=== PATIENT | female | born 1985 | race Caucasian/White ===

== ENCOUNTER 2023-02-09 19:38 | Emergency (ER) | payer BC, SELFPAY ==
[2023-02-09 20:00] VITALS: BP 112/64; PULSE 90; RESP 16; TEMP 36.6; O2SAT 100
[2023-02-09 20:03] VITALS: BP 112/64; PULSE 90; RESP 16; TEMP 36.6; O2SAT 100
--- NOTE | 2023-02-09 20:20 | ED.URI ---
HPI - URI/Sore Throat General Chief Complaint: Upper Respiratory Infection Stated Complaint: congestion, cough, sinus drainage Time Seen by Provider: 02/09/23 20:20 Source: patient, RN notes reviewed and old records reviewed Mode of arrival: ambulatory Limitations: no limitations History of Present Illness HPI Narrative: 37 year old female who presents to [facility] with complaints of cough with sinus congestion and pressure for the past 5-6 days with no improvement with use of OTC medications. Patient reports that she has tried Delsym cough syrup, Claritin, Mucinex, and Zicam nasal spray with no improvement. Patient reports that she has not experienced any shortness of breath or any known fevers, or chills. Patent has been COVID vaccinated and has had flu shot. MD elicited complaint: cough, rhinorrhea, nasal congestion and sinus pain Onset (ago): day(s) (6) Pain scale (0-10): 7 Able to tolerate fluids by mouth: Yes Treatments prior to arrival: other (Claritin,Mucinex,Delsym, Zicam nasal spray) Related Data Home Medications Medication Instructions Recorded Confirmed cholecalciferol (vitamin D3) 25 25 mcg PO DAILY 02/09/23 02/09/23 mcg (1,000 unit) capsule (Vitamin D3) ferrous sulfate 324 mg (65 mg mg PO 02/09/23 iron) tablet,delayed release multivitamin 1 tablet PO DAILY 02/09/23 02/09/23 Allergies Allergy/AdvReac Type Severity Reaction Status Date / Time Penicillins Allergy Mild Hives Verified 02/09/23 19:58 amoxicillin Allergy Unknown Hives Verified 02/09/23 19:58 ciprofloxacin Allergy Unknown Hives Verified 02/09/23 19:58 CIPROFLOXACIN HCL Allergy Mild Hives Uncoded 02/09/23 19:58 Review of Systems Review of Systems: CONSTITUTIONAL:Reports malaise, no chills, sweats, or fever. EYES: Denies visual changes, redness, or discharge. ENT: Reports rhinorrhea, congestion, sinus pain, no otalgia no sore throat. CARDIOVASCULAR: Denies chest pain, palpitations, or edema. RESPIRATORY: Reports cough.? Denies dyspnea. GASTROINTESTINAL: Denies abdominal pain, nausea, vomiting, diarrhea SKIN: Denies rash or itching. MUSCULOSKELETAL: Denies myalgia. NEUROLOGIC: Denies headache. All systems reviewed & are unremarkable except as noted in HPI and below PMFSH Past Medical History Medical History (Updated 02/10/23 @ 08:21 by Jeanine Pearce NP) Endometriosis Kidney stones Surgical History Surgical History (Updated 02/10/23 @ 08:21 by Jeanine Pearce NP) History of hysterectomy History of tonsillectomy Previous section Family History Family History (Updated 07/03/14 @ 07:13 by DOCTOR UNKNOWN) Father Hypertension Grandparent Cerebrovascular accident Family history of coronary artery disease Mother Family history of thyroid disease Sibling Family history of thyroid disease Social History Social History (Updated 02/10/23 @ 08:22 by Jeanine Pearce NP) Smoking status: Never smoker Alcohol intake: current Alcohol use details: social Substance use type: does not use Living arrangements: with family Gender identity (if verbalized by the patient): Female Comments At time of signature, agree with nursing past medical, surgical, social and family history. There is no relevant family history pertinent to the presenting complaint Exam Narrative: GENERAL: Well-appearing, well-nourished, and in no acute distress. HEAD: Normocephalic EYES: PERRLA, conjunctivae clear ENT: Nares clear, turbinates edematous and erythematous, clear discharge. Mucous membranes moist. TM pearly pedro with dull light reflex bilaterally; no tragal tenderness. Oropharynx erythematous without lesions. Tonsils notpresent and throat without exudate, no drooling, no hoarseness, no trismus, uvula midline.post nasal drainage noted. NECK: Supple. No lymphadenopathy CHEST: Clear to auscultation, breath sounds equal. No wheezing, rhonchi, rales, or stridor. No respiratory distress, speaks
== END 2023-02-09 20:42 | disposition home or self-care (01) ==
PROVIDERS: Emergency Provider Registered Nurse; PCP Nurse Practitioner Family
DX: J06.9 Acute upper respiratory infection, unspecified (principal); R05.9 Cough, unspecified; N80.9 Endometriosis, unspecified
CPT/HCPCS: 99213; G0463

== ENCOUNTER 2024-03-20 09:51 | Emergency (ER) | payer BC, SELFPAY ==
[2024-03-20 09:58] VITALS: BP 104/68; PULSE 64; RESP 16; TEMP 36.6; O2SAT 100
--- NOTE | 2024-03-20 10:08 | ED.SKABFB ---
HPI - Skin/Abscess/Foreign Bdy General Chief complaint: Skin/Abscess/Foreign Body Stated complaint: LUMP ON LOWER BACK Time Seen by Provider: 03/20/24 10:08 Source: patient Mode of arrival: ambulatory Limitations: no limitations History of Present Illness HPI narrative: 39 yo F presents with lump to R buttock for 8 days. States that she first noticed lump after her daughter came up behind her and pushed on her butt. Pt states area was tender. Now notices a deep aching to area of lump. No redness/swelling/warmth or drainge. Called her PCP and was not able to get appt til end of April. All systems reviewed and negative except as noted above. Related Data Home Medications Medication Instructions Recorded Confirmed No Home Medications 03/20/24 03/20/24 Allergies Allergy/AdvReac Type Severity Reaction Status Date / Time Penicillins Allergy Mild Hives Verified 03/20/24 10:09 amoxicillin Allergy Unknown Hives Verified 03/20/24 10:09 ciprofloxacin Allergy Unknown Hives Verified 03/20/24 10:09 CIPROFLOXACIN HCL Allergy Mild Hives Uncoded 03/20/24 10:09 Review of Systems Review of Systems: CONSTITUTIONAL: Denies fever, chills, or sweats. EYES: Denies visual changes, redness, or discharge. ENT: Denies rhinorrhea, congestion, sore throat, or otalgia. CARDIOVASCULAR: Denies chest pain, palpitations, or edema. RESPIRATORY: Denies cough or dyspnea. GASTROINTESTINAL: Denies abdominal pain, nausea, vomiting, or diarrhea. GENITOURINARY: Denies dysuria or hematuria. SKIN: Denies rash or itching. Reports lump to right buttock. MUSCULOSKELETAL: Denies back pain, joint pain, or myalgia. NEUROLOGIC: Denies headache, numbness, or weakness. PSYCHIATRIC: Denies anxiety or depression. All other systems reviewed are negative, except as documented in HPI. [facility] Past Medical History Medical History (Updated 03/20/24 @ 10:18 by Cathy Jordan NP) Endometriosis Kidney stones Surgical History Surgical History (Updated 02/10/23 @ 08:21 by Jeanine Pearce NP) History of hysterectomy History of tonsillectomy Previous section Family History Family History (Updated 07/03/14 @ 07:13 by DOCTOR UNKNOWN) Father Hypertension Grandparent Cerebrovascular accident Family history of coronary artery disease Mother Family history of thyroid disease Sibling Family history of thyroid disease Social History Social History (Updated 02/10/23 @ 08:22 by Jeanine Pearce NP) Smoking status: Never smoker Alcohol intake: current Alcohol use details: social Substance use type: does not use Living arrangements: with family Gender identity (if verbalized by the patient): Female Comments At time of signature, agree with nursing past medical, surgical, social and family history. There is no relevant family history pertinent to the presenting complaint. Exam Narrative: GENERAL: This is a well-nourished, well-developed patient, in no apparent distress. HEAD: normocephalic, atraumatic. EYES: PERRL. Sclera clear/white. Vision is grossly intact. EARS: External ears normal NOSE: External nose normal NECK: Neck supple, non-tender without lymphadenopathy, masses or thyromegaly. CARDIOVASCULAR: Regular rate and rhythm without murmurs, gallops, or rubs. RESPIRATORY: Clear to auscultation. Breath sounds equal bilaterally. No wheezes, rales, or rhonchi. SKIN: warm, Dry, intact with no suspicious lesions or rash, good texture and turgor. lump/mass to upper aspect of R buttock approx. 2 to 3cm diameter. deep in soft tissues with no visible swelling, erythema, warmth or drainge. NEURO: awake, alert, and oriented to person, place and time. There were no obvious focal neurologic abnormalities. EXTREMITIES: No joint tenderness, effusion, or edema noted. . BACK: Nontender without deformity. Course Course Level of Care: Express Care Visit Vital Signs Vital signs: Vital Signs Temperature 36.6 C 05
== END 2024-03-20 10:20 | disposition home or self-care (01) ==
PROVIDERS: Emergency Provider Nurse Practitioner Family; PCP Nurse Practitioner Family
DX: R22.2 Localized swelling, mass and lump, trunk (principal); N80.9 Endometriosis, unspecified
CPT/HCPCS: 99211; G0463

== ENCOUNTER 2024-03-25 08:21 | Outpatient (CLI) | payer BC, SELFPAY ==
--- NOTE | ~2024-03-25 | CT_ITS ---
EXAMINATION: CT lumbar spine wo con DATE: 03/25/2024 08:49 INDICATION: Mass on back. Chronic low back pain. TECHNIQUE: Computed tomography (CT) of the lumbar spine was performed without intravenous contrast. A utomated exposure control and iterative reconstruction technique were employed. The dose-length produ ct was 294.55 mGy-cm. COMPARISON: CT abdomen and pelvis 02/16/2011 FINDINGS: There is a 1.5 x 1.6 cm subcutaneous mass in right buttock. Bone alignment is normal. Inter vertebral disc heights are normal. The following disc levels are specifically discussed: L1-L2: The disc does not extend beyond the endplate margin. There is mild bilateral facet joint osteo arthritis. There is no neural foraminal stenosis. There is no central canal stenosis. L2-L3: The disc does not extend beyond the endplate margin. There is mild bilateral facet joint osteo arthritis. There is no neural foraminal stenosis. There is no central canal stenosis. L3-L4: The disc is bulging. There is mild right and moderate left facet joint osteoarthritis. There i s mild bilateral neural foraminal stenosis. There is mild central canal stenosis. L4-L5: The disc is bulging. There is mild bilateral facet joint osteoarthritis. There is mild bilater al neural foraminal stenosis. There is mild central canal stenosis. L5-S1: The disc is bulging. There is mild bilateral facet joint osteoarthritis. There is no neural fo raminal stenosis. There is mild central canal stenosis. IMPRESSION: 1. Nonspecific 1.6 cm subcutaneous mass in the right buttock. The differential diagnosis includes hem atoma, sebaceous cyst, fat necrosis, and less likely neoplasm. 2. Mild lumbar spondylosis. Reviewed, dictated and finalized at location A. IMPRESSION: 1. Nonspecific 1.6 cm subcutaneous mass in the right buttock. The differential diagnosis includes hematoma, sebaceous cyst, fat necrosis, and less likely neop lasm. 2. Mild lumbar spondylosis.
== END 2024-03-25 08:22 ==
PROVIDERS: PCP Nurse Practitioner Family; Visit Provider Nurse Practitioner Family
DX: R22.2 Localized swelling, mass and lump, trunk (principal); G89.29 Other chronic pain; R93.89 Abnormal findings on diagnostic imaging of other specified body structures; M43.06 Spondylolysis, lumbar region
CPT/HCPCS: 72131